=== PATIENT | male | born 1985 | race American Indian/Alaskan Native ===

== ENCOUNTER 2018-01-08 16:19 | Emergency (ER) | payer OTHER ==
[2018-01-08] MEDS ORDERED: CATAPRES PO ONE (19:51)
[2018-01-08] MEDS ORDERED: MOTRIN PO ONE (19:51)
[2018-01-08 20:31] VITALS: BP 153/87
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
== END 2018-01-08 21:20 | disposition home or self-care (01) ==
LOC: ED 16:19
DX: S13.4XXA Sprain of ligaments of cervical spine, initial encounter (principal); R51 Headache; F17.200 Nicotine dependence, unspecified, uncomplicated; V49.09XA Driver injured in collision with other motor vehicles in nontraffic accident, initial encounter; Y93.89 Activity, other specified; Y99.8 Other external cause status; Y92.488 Other paved roadways as the place of occurrence of the external cause
CPT/HCPCS: 70450; 72125